=== PATIENT | male | born 1970 | race Caucasian/White ===

== ENCOUNTER 2017-11-04 18:29 | Emergency (ER) | payer OTHER ==
[2017-11-04] MEDS ORDERED: Meclizine TAB* 12.5 MG PO ONE (19:09)
[2017-11-04 19:27] LABS: ABS Basophils 0.1 10^3/ul (0-0.2); ABS Eosinophils 0.3 10^3/ul (0-0.6); ABS Lymphocytes 2.9 10^3/ul (1.0-4.8); ABS Monocytes 0.9 10^3/ul (0-0.8); ABS Nucleated RBC 0 10^3/ul; Eosinophil % 3.1 % (0-6); Hematocrit 44 % (42-52); Hemoglobin 15.1 g/dl (14.0-18.0); Lymphocyte % 31.7 % (25-47); Mean Corpuscular HGB Conc 35 g/dl (31-36); Mean Corpuscular Hemoglobin 31 pg (27-31); Mean Corpuscular Volume 90 fL (80-94); Mean Platelet Volume 7.5 um3 (7.4-10.4); Nucleated Red Blood Cells % 0; Platelet Count 283 10^3/ul (150-450); Red Blood Count 4.84 10^6/ul (4.0-5.4); Red Cell Distribution Width 13 % (10.5-15); White Blood Count 9.3 10^3/ul (3.5-10.8)
[2017-11-04 19:44] LABS: EGFR Non-African American 73.6 (>60)
--- NOTE | 2017-11-04 19:44 | RAD ---
INDICATION: Syncope. COMPARISON: There are no prior studies available for comparison. TECHNIQUE: Dual-energy PA and lateral views of the chest were obtained. FINDINGS: The heart is within normal limits in size. Mediastinal and hilar contours appear within normal limits. The lungs are clear. No pleural effusion is present. IMPRESSION: NO EVIDENCE FOR ACTIVE CARDIOPULMONARY DISEASE.
[2017-11-04 21:13] VITALS: BP 123/75
--- NOTE | 2017-11-04 21:36 | ED ---
Terrance Griffiths Gabriel, scribed for Donell De La Cruz MD on 11/04/17 at 1934 . Syncope/Near Syncope - HPI Summary HPI Summary: This patient is a 47 year old M BIBA to [facility] accompanied by his fianc with a chief complaint of a syncopal episode that occurred earlier today. Patient had just eaten a good meal consisting of an artisan burger, southwest salad, and a coke from [employer]. After this he felt dizzy and had chest discomfort follow by an LOC, which lasted less than a minute. The patient rates the pain 4/10 in severity. Patient reports dizziness and chest pain. Patient denies ringing in his ears. For that past week the patient has been having dizziness accompanied by diaphoresis, MILLER, and a cough. HE describes the dizziness as the room spinning. - History Of Current Complaint Chief Complaint: EDSyncope Time Seen by Provider: 11/04/17 18:55 Hx Obtained From: Patient Onset/Duration: Lasting Weeks, Still Present, Resolved Timing: Intermittent Episode Lasting - >1 Context: Witnessed Activity At Onset: At Rest Associated Signs And Symptoms: Chest Pain, Dizzy - Allergies/Home Medications Allergies/Adverse Reactions: Allergies Allergy/AdvReac Type Severity Reaction Status Date / Time Penicillins Allergy Unknown Verified 11/04/17 18:46 Reaction Details PMH/Surg Hx/FS Hx/Imm Hx Endocrine/Hematology History: Reports: Hx Diabetes Respiratory History: Reports: Hx Chronic Obstructive Pulmonary Disease (COPD) Psychiatric History: Reports: Hx Schizophrenia Infectious Disease History: No Infectious Disease History: Denies: Traveled Outside the [place] in Last 30 Days - Family History Known Family History: Positive: Cardiac Disease, Hypertension, Diabetes, Other - CANCER Negative: Renal Disease, Seizure Disorder - Social History Lives: With Family Alcohol Use: Occasionally Substance Use Type: Reports: None Hx Tobacco Use: Yes Smoking Status (MU): Heavy Every Day Tobacco Smoker Review of Systems Positive: Skin Diaphoresis Positive: Chest Pain Positive: Cough Neurological: Other - dizziness Positive: Headache, Syncope All Other Systems Reviewed And Are Negative: Yes Physical Exam - Summary Physical Exam Summary: Appearance: The patient is well-nourished in no acute distress and in no acute pain. Skin: The skin is warm and dry and skin color reflects adequate perfusion. HEENT: The head is normocephalic and atraumatic. Nares are patent and without drainage. Mouth reveals moist mucous membranes and the throat is without erythema and exudate. The external ears are intact. The ear canals are patent and without drainage. The tympanic membranes are intact. There is a horizontal nystagmus with the vast component being the right eye that is aggravated by looking to the right Neck: the neck is supple with full range of motion and non-tender. There are no carotid bruits. There is no neck vein distension. Respiratory: diffuse sparse rhonchi in both lungs Cardiovascular: Heart is regular rate and rhythm. There is no murmur or rub auscultated. There is no peripheral edema and pulses are symmetrical and equal. Abdomen: The abdomen is soft and non-tender. There are normal bowel sounds heard in all four quadrants and there is no organomegaly palpated. Musculoskeletal: There is no back tenderness noted. Extremities are non-tender with full range of motion. There is good capillary refill. There is no peripheral edema or calf tenderness elicited. Neurological: Patient is alert and oriented to person, place and time. The patient has symmetrical motor strength in all four extremities. Cranial nerves are grossly intact. Deep tendon reflexes are symmetrical and equal in all four extremities. Psychiatric: The patient has an appropriate affect and does not exhibit any anxiety or depression. Triage Information Reviewed: Yes Vital Signs On Initial Exam: Initial Vitals Temp Pulse Resp BP Pulse Ox 100.1 F 89 15 133/84 96 11/04/17 18:39 11/04/17 18:39 11/04/17 18:39 11/04/17 18:39 11/04/17 18:39 Vital Signs Reviewed: Yes Diagnostics - Vital Signs Vital Signs Temp Pulse Resp BP Pulse Ox 11/04/17 18:47 91 19 133/84 97 11/04/17 18:46 95 12 97 11/04/17 18:39 100.1 F 89 15 133/84 96 - Laboratory Lab Results: Lab Results 11/04/17 11/04/17 11/04/17 Range/Units 19:17 19:17 19:17 WBC 9.3 (3.5-10.8) 10^3/ul RBC 4.84 (4.0-5.4) 10^6/ul Hgb 15.1 (14.0-18.0) g/dl Hct 44 (42-52) % MCV 90 (80-94) fL MCH 31 (27-31) pg MCHC 35 (31-36) g/dl RDW 13 (10.5-15) % Plt Count 283 (150-450) 10^3/ul MPV 7.5 (7.4-10.4) um3 Neut % (Auto) 54.2 (38-83) % Lymph % (Auto) 31.7 (25-47) % [place] % (Auto) 9.7 H (0-7) % Eos % (Auto) 3.1 (0-6) % Baso % (Auto) 1.3 (0-2) % Absolute Neuts (auto) 5.0 (1.5-7.7) 10^3/ul Absolute Lymphs (auto) 2.9 (1.0-4.8) 10^3/ul Absolute Monos (auto) 0.9 H (0-0.8) 10^3/ul Absolute Eos (auto) 0.3 (0-0.6) 10^3/ul Absolute Basos (auto) 0.1 (0-0.2) 10^3/ul Absolute Nucleated RBC 0 10^3/ul Nucleated RBC % 0 Sodium 138 L (139-145) mmol/L Potassium 3.5 (3.5-5.0) mmol/L Chloride 105 (101-111) mmol/L Carbon Dioxide 24 (22-32) mmol/L Anion Gap 9 (2-11) mmol/L BUN 15 (6-24) mg/dL Creatinine 1.08 (0.67-1.17) mg/dL Est GFR ( Amer) 94.7 (>60) Est GFR (Non-Af Amer) 73.6 (>60) BUN/Creatinine Ratio 13.9 (8-20) Glucose 138 H (70-100) mg/dL Lactic Acid 1.2 (0.5-2.0) mmol/L Calcium 9.4 (8.6-10.3) mg/dL Magnesium 2.0 (1.9-2.7) mg/dL Total Bilirubin 0.30 (0.2-1.0) mg/dL AST 18 (13-39) U/L ALT 27 (7-52) U/L Alkaline Phosphatase 54 (34-104) U/L Troponin I 0.00 (<0.04) ng/mL Total Protein 7.0 (6.4-8.9) g/dL Albumin 4.0 (3.2-5.2) g/dL Globulin 3.0 (2-4) g/dL Albumin/Globulin Ratio 1.3 (1-3) TSH 1.10 (0.34-5.60) mcIU/mL Result Diagrams: 11/04/17 19:17 11/04/17 19:17 Lab Statement: Any lab studies that have been ordered have been reviewed, and results considered in the medical decision making process. - Radiology CXR Radiology Interpretation Completed By: Radiologist - no evidence for acute disease ED physician has reviewed this radiology report. - EKG 18:51 Cardiac Rate: NL EKG Rhythm: Sinus Rhythm - at 91 BPM Ectopy: None Course/Dx Course Of Treatment: Mr. Christian had URI symptoms a couple weeks ago for several days accompnied by his ears popping. This week he keeps having episodes of the room spinning and tonight he went down and possibly lost consciousness. He had a bit of horizontal nystagmus and his TMs were clear. He felt somewhat better after meclizine and his W/U was WNL. - Diagnoses Provider Diagnoses: Labyrinthitis Discharge - Sign-Out/Discharge Documenting (check all that apply): Discharge - Discharge Plan Condition: Stable Disposition: HOME Prescriptions: Meclizine TAB* [Antivert 12.5 TAB*] 25 mg PO TID PRN #20 tab PRN Reason: Dizziness Patient Education Materials: Labyrinthitis (ED) Referrals: [facility] [place] PHYSICIAN REFERRAL [Outside] - 2 Days Additional Instructions: RETURN TO THE EMERGENCY DEPARTMENT FOR CHANGING OR WORSENING SYMPTOMS - Billing Disposition and Condition Condition: STABLE Disposition: HOME The documentation as recorded by the Terrance matamoros Gabriel accurately reflects the service I personally performed and the decisions made by me, Donell De La Cruz MD.
== END 2017-11-04 21:51 | disposition home or self-care (01) ==
LOC: ED 18:29
DX: H83.09 Labyrinthitis, unspecified ear (principal); R07.9 Chest pain, unspecified; R42 Dizziness and giddiness; R51 Headache; F17.210 Nicotine dependence, cigarettes, uncomplicated
CPT/HCPCS: 36415; 71046; 80053; 83605; 83735; 84443; 84484; 85025; 93005; 99283; A9270-GY

== ENCOUNTER 2018-01-04 00:57 | Emergency (ER) | payer OTHER ==
[2018-01-04] MEDS ORDERED: LORazepam TAB(*) 1 MG PO ONE (02:09)
[2018-01-04 03:19] VITALS: BP 128/72
--- NOTE | 2018-01-04 03:28 | ED ---
Ken Griffiths Tariq, scribed for Son Payton MD on 01/04/18 at 0220 . Lower Extremity - HPI Summary HPI Summary: A 47 y/o male ANTONIO presents to ED c/o left back knee pain. Pt states that the pain started at 2345 and has been constant ever since. He denies CP and SOB. He is aware of several varicose veins popping out of the left back knee area. FHx thrombosis. - History of Current Complaint Chief Complaint: EDExtremityLower Stated Complaint: LEG PAIN Time Seen by Provider: 01/04/18 01:55 Hx Obtained From: Patient Onset of Pain: Hours Onset/Duration: Hours Severity Initially: Moderate Severity Currently: Moderate Pain Intensity: 4 Pain Scale Used: 0-10 Numeric Timing: Constant, Lasting Hours Character Of Pain: Unable To Describe Associated Signs And Symptoms: Positive: Other - varicose veins popping out Aggravating Factor(s): Nothing Alleviating Factor(s): Nothing Able to Bear Weight: Yes - Allergies/Home Medications Allergies/Adverse Reactions: Allergies Allergy/AdvReac Type Severity Reaction Status Date / Time Penicillins Allergy Unknown Verified 11/04/17 18:46 Reaction Details Home Medications: Home Medications Bactrim DS 800/160 TAB* 1 tab PO BID 01/04/18 [History Confirmed 01/04/18] Celexa 20 mg PO DAILY 01/04/18 [History Confirmed 01/04/18] Metformin HCl 500 mg PO DAILY 01/04/18 [History Confirmed 01/04/18] Propranolol HCl 10 mg PO DAILY 01/04/18 [History Confirmed 01/04/18] PMH/Surg Hx/FS Hx/Imm Hx Endocrine/Hematology History: Reports: Hx Diabetes Respiratory History: Reports: Hx Chronic Obstructive Pulmonary Disease (COPD) Psychiatric History: Reports: Hx Schizophrenia Infectious Disease History: No Infectious Disease History: Denies: Traveled Outside the [place] in Last 30 Days - Family History Known Family History: Positive: Cardiac Disease, Hypertension, Diabetes, Other - CANCER Negative: Renal Disease, Seizure Disorder - Social History Alcohol Use: Occasionally Substance Use Type: Reports: None Hx Tobacco Use: Yes Smoking Status (MU): Heavy Every Day Tobacco Smoker Review of Systems Negative: Fever All Other Systems Reviewed And Are Negative: No Physical Exam - Summary Physical Exam Summary: Appearance: Well appearing, no pain distress Skin: warm, dry, reflects adequate perfusion Head/face: normal Eyes: EOMI, ERIBERTO ENT: normal Neck: supple, non-tender Respiratory: CTA, breath sounds present Cardiovascular: tachycardic Abdomen: non-tender, soft Bowel Sounds: present Musculoskeletal: normal, strength/ROM intact. Soft varicosities, couple on right leg. Multiple varicosities on posterior calf. New soft varicosities Neuro: normal, sensory motor intact, A&Ox3 Triage Information Reviewed: Yes Vital Signs On Initial Exam: Initial Vitals Temp Pulse Resp BP Pulse Ox 99.1 F 112 15 145/88 94 01/04/18 00:59 01/04/18 00:59 01/04/18 00:59 01/04/18 00:59 01/04/18 00:59 Vital Signs Reviewed: Yes Diagnostics - Vital Signs Vital Signs Temp Pulse Resp BP Pulse Ox 01/04/18 00:59 99.1 F 112 15 145/88 94 - Laboratory Lab Results: Lab Results 01/04/18 Range/Units 02:19 POC Glucose (mg/dL) 111 H (70-100) mg/dL Lab Statement: Any lab studies that have been ordered have been reviewed, and results considered in the medical decision making process. Lower Extremity Course/Dx - Course Course Of Treatment: Patient with abrupt onset of discomfort associated with acute dilation of a varicose vein just below the posterior knee. He has multiple varicosities in that leg. It is not uncomfortable at present and is soft and nonthrombosed. He was put in compression stockings here, his sugar was normal and he was treated for his anxiety. He will follow-up with his doctor for referral to vascular. - Diagnoses Provider Diagnoses: Varicose vein of leg, Anxiety Discharge - Sign-Out/Discharge Documenting (check all that apply): Discharge/Admit/Transfer - Discharge - Discharge Plan Condition: Improved Disposition: HOME Patient Education Materials: Vein Stripping (DC) Referrals: Pete Huerta MD [Primary Care Provider] - Additional Instructions: Had your doctor refer you for sclerotherapies/lasering of the varicose veins in your leg. There are different labs that do this or a vascular surgeon may. Wear the compression stockings provided. Tylenol may be taken for discomfort. Return if worse, new symptoms or other concerns. Call your doctor first thing in the morning for an appointment. - Billing Disposition and Condition Condition: IMPROVED Disposition: Home The documentation as recorded by the Ken matamoros Tariq accurately reflects the service I personally performed and the decisions made by , Son Payton MD.
== END 2018-01-04 03:18 | disposition home or self-care (01) ==
LOC: ED 00:57
DX: I83.92 Asymptomatic varicose veins of left lower extremity (principal); F41.9 Anxiety disorder, unspecified; E11.9 Type 2 diabetes mellitus without complications; Z79.84 Long term (current) use of oral hypoglycemic drugs; J44.9 Chronic obstructive pulmonary disease, unspecified; F20.9 Schizophrenia, unspecified; Z88.0 Allergy status to penicillin; F17.200 Nicotine dependence, unspecified, uncomplicated; Z82.49 Family history of ischemic heart disease and other diseases of the circulatory system; Z83.3 Family history of diabetes mellitus; Z80.9 Family history of malignant neoplasm, unspecified; Z83.2 Family history of diseases of the blood and blood-forming organs and certain disorders involving the immune mechanism
CPT/HCPCS: 99282; A9270-GY

== ENCOUNTER 2019-04-04 16:06 | Emergency (ER) | payer OTHER ==
[2019-04-04 16:14] VITALS: BP 134/89
== END 2019-04-04 17:59 | disposition left against medical advice (07) ==
LOC: ED 16:06
DX: Z53.21 Procedure and treatment not carried out due to patient leaving prior to being seen by health care provider (principal); Z88.0 Allergy status to penicillin
CPT/HCPCS: 99281